=== PATIENT | male | born 1970 | race Two or more races ===

== ENCOUNTER 2020-05-07 09:42 | Emergency (ER) | payer OTHER ==
[~2020-05-07] VITALS: Ht 177.8 cm; Wt 102.1 kg
[2020-05-07] MEDS ORDERED: CIPRO500 MG PO (12:10)
[2020-05-07] MEDS ORDERED: KETO10TA2 PO (12:10)
== END 2020-05-07 12:20 | disposition home or self-care (01) ==
LOC: ER 09:42
DX: S91.322A Laceration with foreign body, left foot, initial encounter (principal); W26.8XXA Contact with other sharp object(s), not elsewhere classified, initial encounter; Y93.89 Activity, other specified; Y92.89 Other specified places as the place of occurrence of the external cause; Y99.8 Other external cause status

== ENCOUNTER 2020-09-16 20:38 | Emergency (ER) | payer OTHER ==
[~2020-09-16] VITALS: Ht 177.8 cm; Wt 102.5 kg
[~2020-09-16 20:38] MED LIST: CIPRO500 MG PO; KETO10TA2 PO
[2020-09-16] MEDS ORDERED: INTUNIV1 MG PO (20:59)
[2020-09-16] MEDS ORDERED: ADDERALL 30 MG30 MG PO (20:59)
[2020-09-16] MEDS ORDERED: TENORMIN25 MG PO (21:00)
[2020-09-17] MEDS ORDERED: DILTIAZEM ER120 M2 PO (01:25)
== END 2020-09-17 01:34 | disposition home or self-care (01) ==
LOC: ER 20:38 → CPU-OBS 21:09 → ER 09-17 01:34
DX: I48.0 Paroxysmal atrial fibrillation (principal)
CPT/HCPCS: G0378; G0379; 93005